=== PATIENT | male | born 1990 | race Caucasian/White ===

== ENCOUNTER 2021-09-08 08:14 | Observation (INO) | payer BC ==
[2021-09-08] MEDS ORDERED: NITROGLYCERIN SL TABS 0.4 MG TAB SUBLINGUAL STA (08:28)
[2021-09-08] MEDS ORDERED: NITROGLYCERIN SL TABS 0.4 MG TAB SUBLINGUAL PRN (08:32)
[2021-09-08] MEDS ORDERED: ONDANSETRON 4 MG/2 ML VIAL IVP STA ×2 (08:33→09:17)
[2021-09-08 08:48] LABS: Basophils % (A) 0 %; Eosinophils # (A) 0.2 k/uL (0-0.7); Eosinophils % (A) 2 %; HCT 47.8 % (39.0-53.0); HGB 17.1 gm/dL (13.0-17.5); Lymphocytes # (A) 1.4 k/uL (1.0-4.8); Lymphocytes % (A) 14 %; MCH 30.7 pg (25.0-35.0); MCHC 35.7 g/dL (31.0-37.0); MCV 85.9 fL (80.0-100.0); Mean Platelet Volume 6.9; Monocytes # (A) 0.6 k/uL (0-1.0); Monocytes % (A) 6 %; Neutrophils # (A) 7.6 k/uL (1.3-7.7); Neutrophils % (A) 77 %; Platelet Count 264 k/uL (150-450); RBC 5.56 m/uL (4.30-5.90); RDW 11.8 % (11.5-15.5); WBC 9.9 k/uL (3.8-10.6)
[2021-09-08 08:57] LABS: Partial Thromboplastin Time 24.7 sec (22.0-30.0); Prothrombin Time 10.9 sec (9.0-12.0)
[2021-09-08] MEDS ORDERED: ASPIRIN 81 MG PO STA (09:00)
[2021-09-08 09:11] LABS: ALT 33 U/L (4-49); AST 30 U/L (17-59); African American GFR (CKD) >90 (>60 ml/min/1.73 sqM); Albumin 4.9 g/dL (3.5-5.0); Alkaline Phosphatase 41 U/L (38-126); Anion Gap 9 mmol/L; Blood Urea Nitrogen 22 mg/dL (9-20); Calcium 10.3 mg/dL (8.4-10.2); Carbon Dioxide 26 mmol/L (22-30); Chloride 104 mmol/L (98-107); Glucose 110 mg/dL (74-99); Non-African American GFR(CKD) >90 (>60 ml/min/1.73 sqM); Potassium 4.3 mmol/L (3.5-5.1); Sodium 139 mmol/L (137-145); Total Bilirubin 0.9 mg/dL (0.2-1.3); Total Protein 8.1 g/dL (6.3-8.2)
--- NOTE | 2021-09-08 09:13 | ED ---
Chest Pain HPI - General Chief Complaint: Chest Pain Stated Complaint: Chest pain, SOB Time Seen by Provider: 09/08/21 08:19 Source: patient Mode of arrival: wheelchair Limitations: no limitations - History of Present Illness Initial Comments: Patient is a 31-year-old male with a past medical history of GERD who presents to the emergency department with a chief complaint of chest pain. This never happened before. Patient reports the chest pain started around 10 PM last night. Patient describes the pain as pressure/tightness ib center of his chest, 1/10 in severity with radiation to the left arm causing left arm numbness. He reports that pain was worse with movement and that he was able to comfortably rest in bed if he didn't move. Patient states he did fall asleep for 1 hour, but then woke up at midnight and could not sleep at all through the night for an unknown reason as pain was tolerable. Patient woke up this morning with increased chest pain. He was taking a shower and went to bend down to wash his body when he felt increased left sided pressure/tightness, 7/10 in severity. Patient reports radiation down the left arm and shortness of breath. He denies fever, chills, abdominal pain, nausea, and vomiting. Patient denies alcohol and drug use. Patient states that his mother had a heart attack around the age of 40 and another one 1-2 years later. - Related Data Home Medications Medication Instructions Recorded Confirmed Ascorbic Acid [Vitamin C] 1,000 mg PO DAILY 09/08/21 09/08/21 Cholecalciferol [Vitamin D3 (25 50 mcg PO DAILY 09/08/21 09/08/21 Mcg = 1000 Iu)] Omeprazole Magnesium [PriLOSEC OTC] 20 mg PO DAILY 09/08/21 09/08/21 Zinc 50 mg PO DAILY 09/08/21 09/08/21 Allergies Allergy/AdvReac Type Severity Reaction Status Date / Time codeine AdvReac Nausea & Verified 09/08/21 08:18 Vomiting Review of Systems ROS Statement: Those systems with pertinent positive or pertinent negative responses have been documented in the HPI. ROS Other: All systems not noted in ROS Statement are negative. EKG Findings - EKG Comments: EKG Findings:: EKG taken at 8:26. Normal sinus rhythm with sinus arrhythmia, moderate voltage criteria for LVH, maybe normal variant. Ventricular rate 94. MD interval 188. QRS duration 92. EKG taken at 8:35. Sinus bradycardia with premature supraventricular complexes and premature ventricular complexes or fusion complexes, Vnprg-Mprojhydd-Iebjx. Ventricular rate 48. MD interval 92. QRS duration 180. QT/QTc 460/410. EKG taken at 8:46. Normal sinus rhythm, voltage criteria for left ventricular hypertrophy, early repolarization. Ventricular rate 84. MD interval 202. QRS duration 94. QT/QTC 368/434. QT/QTc 330/412. EKG taken at 8:58. Normal sinus rhythm, ventricular preexcitation, Parkinson White pattern type a. Ventricular rate 81. MD interval 134. QRS duration 158. QT/QTc 404/469 Past Medical History Past Medical History: GERD/Reflux History of Any Multi-Drug Resistant Organisms: None Reported Past Surgical History: No Surgical Hx Reported Past Psychological History: No Psychological Hx Reported Smoking Status: Never smoker Past Alcohol Use History: Occasional Past Drug Use History: None Reported General Exam Limitations: no limitations General appearance: alert, in no apparent distress Head exam: Present: atraumatic, normocephalic, normal inspection Eye exam: Present: normal appearance, PERRL, EOMI. Absent: scleral icterus, conjunctival injection, periorbital swelling Neck exam: Present: normal inspection. Absent: tenderness, meningismus, lymphadenopathy Respiratory exam: Present: normal lung sounds bilaterally. Absent: respiratory distress, wheezes, rales, rhonchi, stridor Cardiovascular Exam: Present: regular rate (chest pain reproducible with palpation ), normal rhythm, normal heart sounds. Absent: systolic murmur, diastolic murmur, rubs, gallop, clicks GI/Abdominal exam: Present: soft, normal bowel sounds. Absent: distended, tenderness, guarding, rebound, rigid Neurological exam: Present: alert, oriented X3, CN II-XII intact Psychiatric exam: Present: normal affect, normal mood Skin exam: Present: warm, dry, intact, normal color. Absent: rash Course Vital Signs 09/08/21 09/08/21 09/08/21 08:15 08:28 08:50 Temperature 97.8 F Pulse Rate 102 H 125 H 85 Respiratory 18 18 Rate Blood Pressure 152/102 156/98 122/92 O2 Sat by Pulse 100 100 Oximetry 09/08/21 09/08/21 09:08 09:11 Temperature Pulse Rate 46 L 93 Respiratory 18 Rate Blood Pressure 88/46 132/84 O2 Sat by Pulse 100 Oximetry Chest Pain MDM - MDM This is a 31-year-old male with a past medical history of GERD who presents to the emergency department with left-sided chest pain. Initially, EKG revealed normal sinus rhythm with sinus arrhythmia. Patient did experience a vasovagal presyncopal episode during IV line insertion. At this time, repeat EKG revealed sinus bradycardia with premature supraventricular complexes and premature ventricular complexes or fusion complexes, resembling Guhfq-Jvthunlgf-Peipp. Cardiology was consultation and evaluated the patient. Patient's third EKG revealed normal sinus rhythm with voltage criteria for left ventricular hypertrophy, early repolarization. His fourth EKG revealed normal sinus rhythm, ventricular preexcitation, Pekfu-Usbceojlv-Fzwxy pattern type a.CBC and CMP are unremarkable. Troponin is negative 1. Chest x-ray reveals no acute pulmonary process. Echo performed. Upon reevaluation, patient is resting in bed. He states that he is feeling more relaxed but still has consistent chest pain. Toradol ordered. ESR/CRP, abdominal ultrasound ordered. Discussed results with Dr. Dhaliwal. Patient will be admitted to him with cardiology consult for potential ablation. Disposition Clinical Impression: Chest pain Disposition: ADMITTED IP TO THIS HOSP Condition: Fair Referrals: None,Stated [Primary Care Provider] - 1-2 days Time of Disposition: 10:20
[2021-09-08] MEDS ORDERED: MORPHINE SULFATE 4 MG/ML SYRINGE IVP STA (09:17)
--- NOTE | 2021-09-08 09:35 | XR ---
EXAMINATION TYPE: XR chest 1V DATE OF EXAM: 09/08/2021 COMPARISON: None INDICATION: Chest pain, short of breath TECHNIQUE: Single frontal view of the chest is obtained. FINDINGS: The heart size is normal. The pulmonary vasculature is normal. The lungs are clear. IMPRESSION: 1. No acute pulmonary process.
[2021-09-08] MEDS ORDERED: ONDANSETRON 4 MG/2 ML VIAL IVP PRN (10:06)
[2021-09-08] MEDS ORDERED: NALOXONE 0.4 MG/ML 1 ML VIAL IV PRN ×2 (10:06→10:27)
[2021-09-08] MEDS ORDERED: KETOROLAC 15 MG/ML 1 ML VIAL IVP STA (10:07)
[2021-09-08] MEDS ORDERED: KETOROLAC 30 MG/ML 1 ML VIAL IVP PRN (10:29)
--- NOTE | 2021-09-08 10:33 | P.HPIM ---
History of Present Illness H&P Date: 09/08/21 31-year-old male with no significant past medical history admitted to the hospital with chest pain shortness of breath that happens last night continued to get worse the patient came to the ER did have episodes of bradycardia and what was thought andressa powers synome patient also did have an episode of bradycardia and slight hypotension after that Patient has been evaluated in the ER by cardiology stat echocardiogram was done Review of systems and systems has been reviewed all negative and positive findings as per history of present illness Constitutional: No acute distress, conversant, pleasant Eyes: Anicteric sclerae, moist conjunctiva, no lid-lag PERRLA ENMT: NC/AT Oropharynx clear, no erythema, exudates Neck: Supple, FROM, no masses, or JVD No carotid bruits No thyromegaly Lungs: Clear to auscultation Clear to percussion Normal respiratory effort, no accessory muscle use Cardiovascular: Heart regular in rate and rhythm, No murmurs, gallops, or rubs No peripheral edema Abdominal: Soft Nontender, no guarding, rebound or rigidity Abdomen moving with respiration Normoactive bowel sounds No hepatomegaly, No splenomegaly No palpable mass No abdominal wall hernia noted Skin: Normal temperature, tone, texture, turgor No induration No subcutaneous nodules No rash, lesions No ulcers Extremities: No digital cyanosis No clubbing Pedal pulses intact and symmetrical Radial pulses intact and symmetrical Normal gait and station No calf tenderness Psychiatric:Alert and oriented to person, place and time Appropriate affect Intact judgement Neuro: Muscles Strength 5/5 in all 4 extremities Sensation to light touch grossly present throughout Cranial nerves II-XII grossly intact No focal sensory deficits Chest pain cardiology following Suspected pericarditis patient will be started on IV steroids and Toradol We'll check computed tomography scan of the lungs to rule out PE Question about Parkinson White syndrome cardiology following Past Medical History Past Medical History: GERD/Reflux History of Any Multi-Drug Resistant Organisms: None Reported Past Surgical History: No Surgical Hx Reported Past Psychological History: No Psychological Hx Reported Smoking Status: Never smoker Past Alcohol Use History: Occasional Past Drug Use History: None Reported Medications and Allergies Home Medications Medication Instructions Recorded Confirmed Type Ascorbic Acid [Vitamin C] 1,000 mg PO DAILY 09/08/21 09/08/21 History Cholecalciferol [Vitamin D3 (25 50 mcg PO DAILY 09/08/21 09/08/21 History Mcg = 1000 Iu)] Omeprazole Magnesium [PriLOSEC OTC] 20 mg PO DAILY 09/08/21 09/08/21 History Zinc 50 mg PO DAILY 09/08/21 09/08/21 History Allergies Allergy/AdvReac Type Severity Reaction Status Date / Time codeine AdvReac Nausea & Verified 09/08/21 08:18 Vomiting Physical Exam Vitals: Vital Signs Temp Pulse Resp BP Pulse Ox 09/08/21 09:11 93 18 132/84 100 09/08/21 09:08 46 L 88/46 09/08/21 08:50 85 122/92 09/08/21 08:28 125 H 18 156/98 100 09/08/21 08:15 97.8 F 102 H 18 152/102 100 Intake and Output 09/07/21 09/08/21 09/08/21 22:59 06:59 14:59 Other: Weight 81.647 kg Results CBC & Chem 7: 09/08/21 08:40 09/08/21 08:40 Labs: Abnormal Lab Results - Last 24 Hours (Table) 09/08/21 Range/Units 08:40 BUN 22 H (9-20) mg/dL Glucose 110 H (74-99) mg/dL Calcium 10.3 H (8.4-10.2) mg/dL
--- NOTE | 2021-09-08 11:26 | CT ---
EXAMINATION TYPE: CT abdomen w con DATE OF EXAM: 09/08/2021 COMPARISON: Ultrasound abdomen 09/08/2021 HISTORY: Chest pain with SOB CT DLP: 936.1 mGycm Automated exposure control for dose reduction was used. TECHNIQUE: Helical acquisition of images was performed from the lung bases through the top of iliac crest to include entire abdomen. CONTRAST: Performed without Oral Contrast and with IV Contrast, patient injected with 100 ml mL of Isovue 370. FINDINGS: LUNG BASES: No significant abnormality is appreciated. LIVER/GB: Gallbladder is not seen, mild intrahepatic biliary ductal dilatation likely due to postchol ecystectomy change. PANCREAS: No significant abnormality is seen. SPLEEN: Borderline enlarged ADRENALS: No significant abnormality is seen. KIDNEYS: No significant abnormality is seen. BOWEL: No significant abnormality is seen. LYMPH NODES: No significant abnormality is appreciated. OSSEOUS STRUCTURES: No significant abnormality is seen. FREE AIR: No Free Air visible ASCITES: None visible. RETROPERITONEAL ADENOPATHY: No Retroperitoneal Adenopathy visible. OTHER: IMPRESSION: POSTOP CHANGE, STATUS POST CHOLECYSTECTOMY. SPLENOMEGALY.
--- NOTE | 2021-09-08 11:28 | US ---
EXAMINATION TYPE: US abdomen complete DATE OF EXAM: 09/08/2021 COMPARISON: NONE CLINICAL HISTORY: Pain. EXAM MEASUREMENTS: Liver Length: 16.3 cm Gallbladder Wall: 0.4 cm CBD: 0.4 cm Spleen: 11.4 cm Right Kidney: 9.5 x 4.1 x 5.5 cm Left Kidney: 9.5 x 5.3 x 4.9 cm Pancreas: Tail obscured by overlying bowel gas Liver: wnl as seen Gallbladder: AYDIN sign, limited views due to overlying bowel gas, ?wall thickening Evidence for sonographic Vasquez's sign: no CBD: wnl Spleen: wnl,limited views due to overlying bowel gas Right Kidney: wnl, as seen, limited views due to overlying bowel gas and tight intercostal spaces Left Kidney: wnl, as seen, limited views due to overlying bowel gas and tight intercostal spaces Upper IVC: wnl Abd Aorta: lwnl, as seen, limited views due to overlying bowel gas IMPRESSION: 1. Wall echo shadow sign is present, gallbladder wall may be thickened 0.4 cm. clinical correlation r ecommended for acute cholecystitis. 2. Examination is very limited due to bowel gas
--- NOTE | 2021-09-08 11:29 | CT ---
EXAMINATION TYPE: CT chest angio for PE DATE OF EXAM: 09/08/2021 COMPARISON: Radiograph 09/08/2021 HISTORY: 31-year-old male Chest pain with SOB TECHNIQUE: Contiguous axial scanning of the chest performed with IV Contrast, patient injected with 1 00 ml mL of Isovue 370. Coronal/sagittal MIP reconstructions performed. CT DLP: 936.1 mGycm Automated exposure control for dose reduction was used. FINDINGS: Heart normal size without pericardial effusion. No flattening of the interventricular septum reflux o f contrast into the hepatic veins. Ectatic aortic root at 3.8 cm. This may be artifactual due to cardiac motion. Conventional arterial s upply to anatomy. Satisfactory opacification the pulmonary canal system. Mild breathing motion artifacts but without ev idence for pulmonary embolus. No thoracic lymphadenopathy by CT size criteria. Mild bronchial wall thickening. Some mild dependent atelectasis in the posterior lower lobes. No cons olidation or pleural effusion. Visualized upper abdomen shows no gross abnormality. Bones: No osseous destructive process. IMPRESSION: NO EVIDENCE FOR PULMONARY EMBOLUS. VERY MILD BRONCHIAL WALL THICKENING MAY REFLECT BRONCHITIS OR REHABILITATOR SANTIAGO ASTHMA. NO FOCAL INFILTRATE.
--- NOTE | 2021-09-08 11:36 | ECHOF ---
Referral Reason:Chest Pain MEASUREMENTS -------- HEIGHT: 185.4 cm WEIGHT: 81.6 kg BP: 132/84 IVSd: 1.0 cm (0.6 - 1.1) LVIDd: 4.6 cm (3.9 - 5.3) LVPWd: 1.0 cm (0.6 - 1.1) EDV(Teich): 100 ml IVSs: 1.5 cm LVIDs: 3.3 cm LVPWs: 1.8 cm %IVS Thck: 51 % ESV(Teich): 45 ml EF(Teich): 55 % %FS: 28 % SV(Teich): 55 ml LA Diam: 2.8 cm (2.7 - 3.8) RVIDd: 2.2 cm (< 3.3) LALs A4C: 3.7 cm LAAs A4C: 12.7 cm LAESV A-L A4C: 37 ml LAESV MOD A4C: 31 ml LALs A2C: 4.7 cm LAAs A2C: 12.5 cm LAESV A-L A2C: 28 ml LAESV MOD A2C: 25 ml LAESV(A-L): 36 ml Ao Diam: 3.4 cm (2.0 - 3.7) AV Cusp: 2.8 cm (1.5 - 2.6) EPSS: 1.0 cm MV E Raza: 0.81 m/s MV DecT: 265 ms MV Dec [place]: 3.0 m/s MV A Raza: 0.63 m/s MV E/A Ratio: 1.29 MV PHT: 77 ms AV Vmax: 1.28 m/s AV maxP.59 mmHg TR Vmax: 1.91 m/s TR maxP.65 mmHg MV EF SLOPE: 117.54 mm/s (70 - 150) MV EXCURSION: 16.27 mm (> 18.000) FINDINGS -------- Sinus rhythm. This was a technically adequate study. The left ventricular size is normal. Left ventricular wall thickness is normal. Overall left vent ricular systolic function is normal with, an EF between 60 - 65 %. The right ventricle is normal in size. The left atrium is normal in size. The right atrium is normal in size. Interatrial and interventricular septum intact. The aortic valve is trileaflet, and appears structurally normal. No aortic stenosis or regurgitation. There is trace to mild mitral regurgitation. The tricuspid valve appears structurally normal. Unable to estimate RVSP due to inadequate TR jet s pectral doppler profile. Trace/mild (physiologic) pulmonic regurgitation. The aortic root size is normal. The inferior vena cava is mildly dilated. There is no pericardial effusion. CONCLUSIONS -------- 1. The left ventricular size is normal. 2. Left ventricular wall thickness is normal. 3. Overall left ventricular systolic function is normal with, an EF between 60 - 65 %. 4. The aortic valve is trileaflet, and appears structurally normal. No aortic stenosis or regurgitati on. 5. There is trace to mild mitral regurgitation. 6. Trace/mild (physiologic) pulmonic regurgitation. 7. There is no pericardial effusion. WELL DRILL OPERATOR ROTARY DRILL: Mally De Jesus, MENDOZACS
[2021-09-08] MEDS: methylPREDNISolone SOD SUCCI 40 MG/ML 1 ML VIAL IV SCH ×3 (12:31→23:21)
[2021-09-08 19:09] LABS: Appearance,Urine Clear (Clear); Bilirubin,Urine Negative (Negative); Blood,Urine Negative (Negative); Color,Urine Light Yellow; Glucose,Urine (UA) Trace (Negative); Ketones,Urine Negative (Negative); Leukocyte Esterase,Urine Negative (Negative); Nitrite,Urine Negative (Negative); PH, Urine 6.5 (5.0-8.0); Protein,Urine Negative (Negative); Specific Gravity,Urine 1.024 (1.001-1.035); Urobilinogen,Urine <2.0 mg/dL (<2.0)
[2021-09-08 19:31] LABS: Amphetamine Screen,Urine Not Detected (NotDetected); Barbiturate Screen,Urine Not Detected (NotDetected); Benzodiazepines Screen,Urine Not Detected (NotDetected); Cocaine Screen,Urine Not Detected (NotDetected); Methadone Screen, Urine Not Detected (NotDetected); Opiate Screen,Urine Detected (NotDetected); Oxycodone Screen, Urine Not Detected (NotDetected); Phencyclidine Screen,Urine Not Detected (NotDetected); Tricyclic Antidepressant,Urine Not Detected (NotDetected); Urn Cannabinoid Scrn Not Detected (NotDetected)
[2021-09-08] MEDS: ACETAMINOPHEN TAB 325 MG TAB PO PRN (20:25)
[2021-09-09] MEDS: ACETAMINOPHEN TAB 325 MG TAB PO PRN (07:49)
[2021-09-09] MEDS: methylPREDNISolone SOD SUCCI 40 MG/ML 1 ML VIAL IV SCH ×3 (07:49→23:26)
--- NOTE | 2021-09-09 08:42 | P.PN ---
Subjective Progress Note Date: 09/09/21 Principal diagnosis: pericarditis The patient is a pleasant 31-year-old gentleman was admitted to the hospital with chest discomfort. The chest discomfort was pleuritic and consistent with pericarditis. The EKG showed finding consistent with pericarditis. Also the second EKG showed finding consistent with preexcitation. The patient was seen this morning. He is doing better in terms of chest discomfort. He reports no shortness of breath or dizziness or lightheadedness o r any presyncope or syncope. The echo showed normal left ventricular systolic function without any evidence of pericardial effusion. I'm going to start the patient on ibuprofen along with colchicine along with Protonix. I advised the patient to stay one more day since she continues to have a chest discomfort. The EKG this morning showed sinus rhythm with evidence of preexcitation. He is hemodynamically stable. Objective - Vital Signs Vital signs: Vital Signs Temp 97.9 F 09/09/21 07:00 Pulse 69 09/09/21 07:00 Resp 18 09/09/21 07:00 BP 134/84 09/09/21 07:00 Pulse Ox 99 09/09/21 07:00 Intake & Output 09/08/21 09/09/21 09/09/21 18:59 06:59 18:59 Intake Total 1000 Output Total 350 0 Balance 650 0 Weight 81.647 kg Intake: Oral 1000 Output: Urine 350 Emesis 0 Other: Voiding Method Toilet Toilet # Voids 1 1 - Constitutional General appearance: Present: no acute distress - Respiratory Respiratory: bilateral: CTA - Cardiovascular Rhythm: regular Heart sounds: normal: S1, S2 - Labs CBC & Chem 7: 09/08/21 08:40 09/08/21 08:40 Labs: Abnormal Lab Results - Last 24 Hours (Table) 09/08/21 09/08/21 09/08/21 Range/Units 08:40 18:53 18:54 BUN 22 H (9-20) mg/dL Glucose 110 H (74-99) mg/dL Calcium 10.3 H (8.4-10.2) mg/dL Urine Glucose (UA) Trace H (Negative) Urine Opiates Screen Detected H (NotDetected) Assessment and Plan Assessment: Assessment #1 chest discomfort consistent with acute pericarditis #2 evidence of preexcitation on the EKG Plan #1 start the patient on ibuprofen along with colchicine along with Protonix #2 the patient will benefit from an EP consult to assess the need for ablation for preexcitation #3 the echo was reviewed #4 monitor the patient for additional 24 hours
[2021-09-09] MEDS: COLCHICINE 0.6 MG EACH PO SCH ×2 (09:41→20:01)
[2021-09-09] MEDS: IBUPROFEN 200 MG TAB PO SCH ×3 (09:41→22:10)
--- NOTE | 2021-09-09 11:35 | P.PN ---
Subjective Progress Note Date: 09/09/21 31-year-old male with no significant past medical history admitted to the hospital with chest pain shortness of breath that happens last night continued to get worse the patient came to the ER did have episodes of bradycardia and what was thought andressa powers synome patient also did have an episode of bradycardia and slight hypotension after that Patient has been evaluated in the ER by cardiology stat echocardiogram was done Review of systems and systems has been reviewed all negative and positive findings as per history of present illness Constitutional: No acute distress, conversant, pleasant Eyes: Anicteric sclerae, moist conjunctiva, no lid-lag PERRLA ENMT: NC/AT Oropharynx clear, no erythema, exudates Neck: Supple, FROM, no masses, or JVD No carotid bruits No thyromegaly Lungs: Clear to auscultation Clear to percussion Normal respiratory effort, no accessory muscle use Cardiovascular: Heart regular in rate and rhythm, No murmurs, gallops, or rubs No peripheral edema Abdominal: Soft Nontender, no guarding, rebound or rigidity Abdomen moving with respiration Normoactive bowel sounds No hepatomegaly, No splenomegaly No palpable mass No abdominal wall hernia noted Skin: Normal temperature, tone, texture, turgor No induration No subcutaneous nodules No rash, lesions No ulcers Extremities: No digital cyanosis No clubbing Pedal pulses intact and symmetrical Radial pulses intact and symmetrical Normal gait and station No calf tenderness Psychiatric:Alert and oriented to person, place and time Appropriate affect Intact judgement Neuro: Muscles Strength 5/5 in all 4 extremities Sensation to light touch grossly present throughout Cranial nerves II-XII grossly intact No focal sensory deficits Chest pain cardiology following Suspected pericarditis patient will be started on IV steroids and Toradol We'll check computed tomography scan of the lungs to rule out PE Question about Parkinson White syndrome cardiology following Patient will be continue to observe overnight Management as per cardiology and EP Objective - Vital Signs Vital signs: Vital Signs Temp 97.9 F 09/09/21 07:00 Pulse 69 09/09/21 07:00 Resp 18 09/09/21 07:00 BP 134/84 09/09/21 07:00 Pulse Ox 99 09/09/21 07:00 Intake & Output 09/08/21 09/09/21 09/09/21 18:59 06:59 18:59 Intake Total 1000 Output Total 350 0 Balance 650 0 Weight 81.647 kg Intake: Oral 1000 Output: Urine 350 Emesis 0 Other: Voiding Method Toilet Toilet Toilet # Voids 1 1 - Labs CBC & Chem 7: 09/08/21 08:40 09/08/21 08:40 Labs: Abnormal Lab Results - Last 24 Hours (Table) 09/08/21 09/08/21 Range/Units 18:53 18:54 Urine Glucose (UA) Trace H (Negative) Urine Opiates Screen Detected H (NotDetected)
[2021-09-09 12:44] LABS: Basophils # (A) 0.01 X 10*3/uL (0.00-0.10); Basophils % (A) 0.1 %; Eosinophils # (A) 0 X 10*3/uL (0.04-0.35); Eosinophils % (A) 0 %; HGB 15.2 g/dL (13.0-17.0); Lymphocytes # (A) 1.35 X 10*3/uL (0.90-5.00); Lymphocytes % (A) 12.7 %; MCH 29.1 pg (27.0-32.0); MCHC 33.8 g/dL (32.0-37.0); Mean Platelet Volume 9.7 fL (9.5-12.2); Monocytes # (A) 0.53 X 10*3/uL (0.20-1.00); Neutrophils # (A) 8.75 X 10*3/uL (1.80-7.70); Neutrophils % (A) 81.9 %; Platelet Count 253 X 10*3/uL (140-440); RBC 5.23 X 10*6/uL (4.40-5.60); RDW 11.9 % (11.5-14.5); WBC 10.67 X 10*3/uL (4.50-10.00)
[2021-09-09 13:04] LABS: African American GFR (CKD) 143.7 (60.0-200.0); Albumin 4.5 g/dL (3.8-4.9); Albumin/Globulin Ratio 2.14 (1.60-3.17); Anion Gap 12.1 mmol/L (10.00-18.00); BUN/Creat Ratio 18.86 Ratio (12.00-20.00); Blood Urea Nitrogen 13.2 mg/dL (9.0-27.0); Calcium 10.1 mg/dL (8.7-10.3); Carbon Dioxide 24.9 mmol/L (20.0-27.5); Globulin 2.1 g/dL (1.6-3.3); Potassium 4.5 mmol/L (3.5-5.5); Total Bilirubin 0.4 mg/dL (0.30-1.20); Total Protein 6.6 g/dL (6.2-8.2)
[2021-09-09] MEDS: PANTOPRAZOLE 40 MG TABLET PO SCH (16:10)
[2021-09-09 19:53] VITALS: RESP 18
[2021-09-10] MEDS: IBUPROFEN 200 MG TAB PO SCH (07:39)
[2021-09-10] MEDS: PANTOPRAZOLE 40 MG TABLET PO SCH (07:39)
[2021-09-10] MEDS: COLCHICINE 0.6 MG EACH PO SCH (07:40)
[2021-09-10] MEDS: methylPREDNISolone SOD SUCCI 40 MG/ML 1 ML VIAL IV SCH (07:40)
[2021-09-10 08:35] VITALS: BP 128/71; PULSE 80; TEMP 97.4
--- NOTE | 2021-09-10 11:21 | P.PN ---
Subjective Progress Note Date: 09/10/21 Principal diagnosis: pericarditis The patient is a pleasant 31-year-old gentleman was admitted to the hospital with chest discomfort. The chest discomfort was pleuritic and consistent with pericarditis. The EKG showed finding consistent with pericarditis. Also the second EKG showed finding consistent with preexcitation. The patient was started on treatment for pericarditis with nonsteroid anti-inflammatory medications along with colchicine. He was seen today. He remains asymptomatic in terms of chest pain or chest discomfort. He reports no shortness of breath. No dizziness or lightheadedness. No feeling of heart racing or fluttering. No presyncope or syncope. He would like to go home. From a cardiac standpoint of view, the patient can be discharged home. I asked him to stay overnight to be seen by an carousel operator tomorrow but he would like to be seen as an outpatient. From the cardiac standpoint of view, the patient can be discharged home and I'll follow-up with him in the office as an outpatient Objective - Vital Signs Vital signs: Vital Signs Temp 97.4 F L 09/10/21 07:00 Pulse 80 09/10/21 07:00 Resp 18 09/10/21 07:00 BP 128/71 09/10/21 07:00 Pulse Ox 99 09/10/21 07:00 Intake & Output 09/09/21 09/10/21 09/10/21 18:59 06:59 18:59 Intake Total 120 Balance 120 Intake: Oral 120 Other: Voiding Method Toilet Toilet Toilet # Voids 2 # Bowel Movements 3 - Constitutional General appearance: Present: no acute distress - Respiratory Respiratory: bilateral: CTA - Cardiovascular Rhythm: regular Heart sounds: normal: S1, S2 - Labs CBC & Chem 7: 09/09/21 08:06 09/09/21 08:06 Labs: Abnormal Lab Results - Last 24 Hours (Table) 09/09/21 Range/Units 08:06 WBC 10.67 H (4.50-10.00) X 10*3/uL Neutrophils # 8.75 H (1.80-7.70) X 10*3/uL Eosinophils # 0 L (0.04-0.35) X 10*3/uL Assessment and Plan Assessment: Assessment #1 chest discomfort consistent with acute pericarditis #2 evidence of preexcitation on the EKG Plan #1 continue the current medical regimen including nonsteroid anti-inflammatory along with colchicine #2 follow-up with the patient as an outpatient
--- NOTE | 2021-09-10 11:26 | P.DS ---
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 Patient also was found to have suspected pericarditis Treated with IV steroids and Advil significantly improved the condition of the patient is stable the patient doesn't have any significant chest pain or shortness of breath today Constitutional: No acute distress, conversant, pleasant Eyes: Anicteric sclerae, moist conjunctiva, no lid-lag PERRLA ENMT: NC/AT Oropharynx clear, no erythema, exudates Neck: Supple, FROM, no masses, or JVD No carotid bruits No thyromegaly Lungs: Clear to auscultation Clear to percussion Normal respiratory effort, no accessory muscle use Cardiovascular: Heart regular in rate and rhythm, No murmurs, gallops, or rubs No peripheral edema Abdominal: Soft Nontender, no guarding, rebound or rigidity Abdomen moving with respiration Normoactive bowel sounds No hepatomegaly, No splenomegaly No palpable mass No abdominal wall hernia noted Skin: Normal temperature, tone, texture, turgor No induration No subcutaneous nodules No rash, lesions No ulcers Extremities: No digital cyanosis No clubbing Pedal pulses intact and symmetrical Radial pulses intact and symmetrical Normal gait and station No calf tenderness Psychiatric:Alert and oriented to person, place and time Appropriate affect Intact judgement Neuro: Muscles Strength 5/5 in all 4 extremities Sensation to light touch grossly present throughout Cranial nerves II-XII grossly intact No focal sensory deficits Discharge plan Suspected pericarditis continue steroids and ibuprofen patient to follow-up with cardiology as an outpatient Question about while Parkinson's syndrome patient to follow-up with EP as an outpatient Patient Condition at Discharge: Fair Plan - Discharge Summary Discharge Rx Participant: No New Discharge Prescriptions: New Ibuprofen [Advil] 200 mg PO TID 10 Days #30 tab predniSONE 50 mg PO DAILY 7 Days #7 tablet Continue Zinc 50 mg PO DAILY Cholecalciferol [Vitamin D3 (25 Mcg = 1000 Iu)] 50 mcg PO DAILY Ascorbic Acid [Vitamin C] 1,000 mg PO DAILY Omeprazole Magnesium [PriLOSEC OTC] 20 mg PO DAILY Discharge Medication List Ascorbic Acid [Vitamin C] 1,000 mg PO DAILY 09/08/21 [History] Cholecalciferol [Vitamin D3 (25 Mcg = 1000 Iu)] 50 mcg PO DAILY 09/08/21 [History] Omeprazole Magnesium [PriLOSEC OTC] 20 mg PO DAILY 09/08/21 [History] Zinc 50 mg PO DAILY 09/08/21 [History] Ibuprofen [Advil] 200 mg PO TID 10 Days #30 tab 09/10/21 [Rx] predniSONE 50 mg PO DAILY 7 Days #7 tablet 09/10/21 [Rx] Follow up Appointment(s)/Referral(s): None,Stated [Primary Care Provider] - 1-2 days Discharge Disposition: HOME SELF-CARE
[2021-09-10 11:30] LABS: African American GFR (CKD) 143.7 (60.0-200.0); Albumin 4.4 g/dL (3.8-4.9); Albumin/Globulin Ratio 2.1 (1.60-3.17); Anion Gap 11.8 mmol/L (10.00-18.00); Blood Urea Nitrogen 16.8 mg/dL (9.0-27.0); Calcium 9.9 mg/dL (8.7-10.3); Carbon Dioxide 26.2 mmol/L (20.0-27.5); Globulin 2.1 g/dL (1.6-3.3); Potassium 4.8 mmol/L (3.5-5.5); Total Bilirubin 0.3 mg/dL (0.30-1.20); Total Protein 6.5 g/dL (6.2-8.2)
[2021-09-10 11:44] LABS: Basophils # (A) 0 X 10*3/uL (0.00-0.10); Basophils % (A) 0 %; Eosinophils # (A) 0 X 10*3/uL (0.04-0.35); Eosinophils % (A) 0 %; HCT 45.5 % (39.6-50.0); HGB 15.4 g/dL (13.0-17.0); Lymphocytes # (A) 1.13 X 10*3/uL (0.90-5.00); Lymphocytes % (A) 10.9 %; MCH 29.3 pg (27.0-32.0); MCHC 33.8 g/dL (32.0-37.0); MCV 86.7 fL (80.0-97.0); Mean Platelet Volume 9.9 fL (9.5-12.2); Monocytes # (A) 0.61 X 10*3/uL (0.20-1.00); Monocytes % (A) 5.9 %; Neutrophils # (A) 8.61 X 10*3/uL (1.80-7.70); Platelet Count 270 X 10*3/uL (140-440); RBC 5.25 X 10*6/uL (4.40-5.60); RDW 11.9 % (11.5-14.5); WBC 10.37 X 10*3/uL (4.50-10.00)
== END 2021-09-10 12:10 | disposition home or self-care (01) ==
LOC: EC 08:14 → 6NMEDSUR 09:56
PROVIDERS: ADMIT Internal Medicine; ATTEND Internal Medicine
DX: R07.89 Other chest pain (principal); R20.0 Anesthesia of skin; R07.81 Pleurodynia; R06.02 Shortness of breath; R55 Syncope and collapse; I95.9 Hypotension, unspecified; R00.1 Bradycardia, unspecified; I34.0 Nonrheumatic mitral (valve) insufficiency; K21.9 Gastro-esophageal reflux disease without esophagitis; Z20.822 Contact with and (suspected) exposure to COVID-19; Z71.9 Counseling, unspecified; Z79.899 Other long term (current) drug therapy; Z88.5 Allergy status to narcotic agent; Z82.49 Family history of ischemic heart disease and other diseases of the circulatory system
CPT/HCPCS: 96376 ×3; 96375 ×2; 96374; 99285; 36415; 93005; 93306; 80053 ×3; 85652; 83735; 84484; 85025 ×3; 85610; 85730; 86140; 81003; 80306; 87635; 71045; 76700; 74160; 71275; G0378 ×3; J2270; J2920 ×3; J2405; J1885 ×2; Q9967

== ENCOUNTER 2021-12-28 12:52 | Day surgery (SDC) | payer BC ==
[2021-12-27 08:13] VITALS: BMI 24.4
[2021-12-28] MEDS ORDERED: SODIUM CHLORIDE 0.9% 1,000 ML IV ONE (13:38)
[2021-12-28 13:46] LABS: Basophils % (A) 0 %; Eosinophils # (A) 0.1 k/uL (0-0.7); Eosinophils % (A) 3 %; HCT 47.7 % (39.0-53.0); HGB 16.4 gm/dL (13.0-17.5); Lymphocytes # (A) 1.9 k/uL (1.0-4.8); Lymphocytes % (A) 41 %; MCH 29.6 pg (25.0-35.0); MCHC 34.4 g/dL (31.0-37.0); MCV 85.9 fL (80.0-100.0); Mean Platelet Volume 7.1; Monocytes # (A) 0.4 k/uL (0-1.0); Monocytes % (A) 8 %; Neutrophils # (A) 2.1 k/uL (1.3-7.7); Neutrophils % (A) 46 %; Platelet Count 258 k/uL (150-450); RBC 5.55 m/uL (4.30-5.90); RDW 11.7 % (11.5-15.5); WBC 4.6 k/uL (3.8-10.6)
[2021-12-28 13:48] LABS: African American GFR (CKD) >90 (>60 ml/min/1.73 sqM); Anion Gap 7 mmol/L; Blood Urea Nitrogen 20 mg/dL (9-20); Calcium 9.5 mg/dL (8.4-10.2); Carbon Dioxide 31 mmol/L (22-30); Chloride 102 mmol/L (98-107); Glucose 88 mg/dL (74-99); Non-African American GFR(CKD) >90 (>60 ml/min/1.73 sqM); Potassium 4.2 mmol/L (3.5-5.1); Sodium 140 mmol/L (137-145)
[2021-12-28] MEDS ORDERED: diphenhydrAMINE 50 MG/ML 1 ML VIAL ONE (15:26)
[2021-12-28] MEDS ORDERED: DEXAMETHASONE SOD PHOSPHATE 4 MG/ML 1 ML VIAL ONE (15:26)
[2021-12-28] MEDS ORDERED: MIDAZOLAM 2 MG/2 ML VIAL ONE (15:26)
[2021-12-28] MEDS ORDERED: ISOPROTERENOL 250 MCG/1.25 ML SYR IV ONE (15:26)
[2021-12-28] MEDS ORDERED: ONDANSETRON 4 MG/2 ML VIAL ONE ×2 (15:26→16:23)
[2021-12-28] MEDS ORDERED: fentaNYL (PF) 50 MCG/ML 2 ML AMP ONE (15:26)
[2021-12-28] MEDS ORDERED: LIDOCAINE 1% INJ 10MG/ML (30 ML VIAL-PF) SQ ONE (16:02)
--- NOTE | 2021-12-28 17:28 | P.EPPROC ---
- EP Procedure Note Electrophysiology Procedure Note: Diagnosis Recurrent palpitations Antegrade accessory pathway left posterior evident on twelve-lead EKG Final diagnosis Antegrade accessory pathway only left posterior Does not support reentry Long VA conduction time that does not support AV rosa reentry either Narrow QRS during induced atrial fibrillation Prolonged AH interval baseline in a very mildly sedated state Normal HV interval Accessory pathway ablation NOT indicated Details Patient was brought to the EP lab in a fasting state. Written informed consent was obtained prior to the procedure. Venous sheaths were placed in the right and left femoral veins Catheters were placed in the high right atrium, His bundle, right ventricle and coronary sinus Baseline measurements: Sinus cycle length 05/01/1990 milliseconds, ID interval 191, QRS 108 and QT interval 361 AH interval 136, HV interval 48 ms Sinus node recovery time was difficult to assess on account of PACs AV node Wenckebach block for 90 ms in the baseline state VA Wenckebach block greater than 700 ms, in the baseline state Isuprel started. Patient became nauseous on Isuprel but ultimately we were able to do Isuprel up to 10 mics, slowly Antegrade accessory pathway block between 550 and 590 ms depending upon pacing from high right atrium of the coronary sinus Retrograde accessory pathway block at 510 ms Retrograde AV node block at 510 ms Echo beats comprising of antegrade conduction down the AV node and up the accessory pathway were noted frequently However this pathway could not support sustained reentry The ventricular end of the pathway appeared to be in the mid coronary sinus poles and the atrial and appeared to be lateral to this location On high-dose Isuprel atrial fibrillation was induced QRS remained narrow rate remained controlled All catheters removed. Vascade closure used
--- NOTE | 2021-12-28 17:31 | P.PRLE ---
RE: Osorio Oliver Dear Godfrey Atkins underwent a diagnostic EP study which revealed a left posterior accessory pathway that could not support reentry Nor could it support one-to-one conduction during atrial fibrillation He will continue to see you and Dr. Morris as before Thank you for entrusting me with the care of the patient Warm regards Sincerely Miguel A Howard
[2021-12-28 18:27] VITALS: RESP 18
[2021-12-28] MEDS: LACTATED RINGERS 1,000 ML IV SCH (18:27)
[2021-12-28] MEDS: SODIUM CHLORIDE 0.9% 1,000 ML IV SCH (18:27)
[2021-12-29] MEDS: LACTATED RINGERS 1,000 ML IV SCH (04:29)
[2021-12-29] MEDS: SODIUM CHLORIDE 0.9% 1,000 ML IV SCH (04:30)
[2021-12-29 07:48] VITALS: BP 126/70; PULSE 64; TEMP 98
--- NOTE | 2021-12-29 09:12 | DS ---
DISCHARGE SUMMARY Osorio Oliver is a patient of Dr. 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 He underwent a diagnostic EP study yesterday. He is doing well today. No chest discomfort, minimal groin discomfort, no hematoma, no swelling. Blood pressure is in the normal range. IMPRESSION: 1. Left posterior accessory pathway. 2. No evidence for orthodromic or antidromic reentry. 3. Narrow QRS during induced atrial fibrillation. 4. This pathway has slow conducting properties and cannot sustain reentry or conduction during atrial fibrillation or rapid pacing. 5. Therefore ablation is not indicated for this pathway. PLAN: The patient will be discharged home today and will follow up with Dr. Arndt in a week. MMODL / IJN: [id number] /
== END 2021-12-29 10:08 | disposition home or self-care (01) ==
LOC: CATHEP 12:52 → 6NMEDSUR 17:18 → CATHEP 12-29 10:08
PROVIDERS: ATTEND Internal Medicine Clinical Cardiac Electrophysiology
DX: I48.91 Unspecified atrial fibrillation (principal); Z20.822 Contact with and (suspected) exposure to COVID-19
CPT/HCPCS: 93623; 93620; 80048; 85025; 87635; C1894; C1769 ×2; C1760; C1730 ×2; J2250; J1200; J1100; J2405; J2001; J3010

== ENCOUNTER 2022-01-11 16:32 | Observation (INO) | payer BC ==
[2022-01-11] MEDS ORDERED: HYDROmorphone 0.5 MG/0.5 ML SYRINGE IVP STA (18:18)
--- NOTE | 2022-01-11 18:30 | ED ---
General Adult HPI - General Chief complaint: Chest Pain Stated complaint: Chest pain-Sent by Dr. Arndt Time Seen by Provider: 01/11/22 16:45 Source: patient, RN notes reviewed, old records reviewed Mode of arrival: ambulatory Limitations: no limitations - History of Present Illness Initial comments: This is a 31-year-old male who presents emergency Department with chest pain. Patient was recently in the hospital for pericarditis and was sent home on c olchicine. Patient states the pain started getting better but more recently got worse so he went to see Dr. staff Dr. Arndt increased is cold to seen but it has not helped so Dr. Arndt recommended he come to the hospital to be admitted. Patient states lying flat makes it worse sitting way forward makes it worse sitting straight up in the past position with the least amount of pain per patient states the pain is a sharp pain. Patient states it hurts take a deep breath but he doesn't feel short of breath. Patient denies any recent fever chills or cough per patient denies any abdominal pain patient denies nausea vomiting diarrhea. Patient denies any lightheadedness or dizziness. - Related Data Home Medications Medication Instructions Recorded Confirmed Ascorbic Acid [Vitamin C] 1,000 mg PO DAILY 09/08/21 12/28/21 Omeprazole Magnesium [PriLOSEC OTC] 20 mg PO DAILY 09/08/21 12/28/21 Cholecalciferol (Vitamin D3) 2,500 units PO DAILY 12/27/21 12/28/21 [Vitamin D3 (125 MCG = 5,000 IU)] Previous Rx's Medication Instructions Recorded Colchicine [Colcrys] 0.6 mg PO BID 30 Days #60 tablet 09/10/21 Allergies Allergy/AdvReac Type Severity Reaction Status Date / Time codeine AdvReac Nausea & Verified 12/27/21 08:05 Vomiting Review of Systems ROS Statement: Those systems with pertinent positive or pertinent negative responses have been documented in the HPI. ROS Other: All systems not noted in ROS Statement are negative. Past Medical History Past Medical History: GERD/Reflux Additional Past Medical History / Comment(s): Bronchitis, see Dr Howard H&P, pericarditis WPW History of Any Multi-Drug Resistant Organisms: None Reported Past Surgical History: No Surgical Hx Reported Additional Past Surgical History / Comment(s): mole removed, oral surgery Past Anesthesia/Blood Transfusion Reactions: Motion Sickness, Postoperative Na usea & Vomiting (PONV) Additional Past Anesthesia/Blood Transfusion Reaction / Comment(s): . Past Psychological History: No Psychological Hx Reported Smoking Status: Former smoker Past Alcohol Use History: Occasional Past Drug Use History: Marijuana - Past Family History Mother Family Medical History: Myocardial Infarction (MS) Additional Family Medical History / Comment(s): Mother has had 2-3 MIs and the first MS was either at age 41 or 42. General Exam - General Exam Comments Initial Comments: GENERAL: Patient is well-developed and well-nourished. Patient is nontoxic and well- hydrated and is in mild distress. ENT: Neck is soft and supple. No significant lymphadenopathy is noted. Oropharynx is clear. Moist mucous membranes. Neck has full range of motion without eliciting any pain. EYES: The sclera were anicteric and conjunctiva were pink and moist. Extraocular movements were intact and pupils were equal round and reactive to light. Eyelids were unremarkable. PULMONARY: Unlabored respirations. Good breath sounds bilaterally. No audible rales rhonchi or wheezing was noted. CARDIOVASCULAR: There is a regular rate and rhythm without any murmurs gallops or rubs. ABDOMEN: Soft and nontender with normal bowel sounds. SKIN: Skin is clear with no lesions or rashes and otherwise unremarkable. NEUROLOGIC: Patient is alert and oriented x3. Cranial nerves II through XII are grossly intact. Motor and sensory are also intact. Normal speech, volume and content. Symmetrical smile. MUSCULOSKELETAL: Normal extremities with adequate strength and full range of motion. LYMPHATICS: No significant lymphadenopathy is noted PSYCHIATRIC: Normal psychiatric evaluation. 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 Patient has some peaked T waves in the precordial leads as well as significant ST segment elevation diffusely. Consistent with pericarditis. I spoke with Dr. Yris Arndt wanted the patient admitted. Chest x-ray shows no acute abnormality. I spoke with sounds physician's he agreed to admit the patient admitted the patient I wrote admitting orders. - Lab Data Result diagrams: 01/11/22 18:22 01/11/22 18:22 Lab Results 01/11/22 01/11/22 01/11/22 Range/Units 18:22 18:22 18:22 WBC 9.6 (3.8-10.6) k/uL RBC 5.62 (4.30-5.90) m/uL Hgb 16.9 (13.0-17.5) gm/dL Hct 48.1 (39.0-53.0) % MCV 85.6 (80.0-100.0) fL MCH 30.0 (25.0-35.0) pg MCHC 35.1 (31.0-37.0) g/dL RDW 12.3 (11.5-15.5) % Plt Count 269 (150-450) k/uL MPV 7.0 Neutrophils % 77 % Lymphocytes % 14 % Monocytes % 7 % Eosinophils % 1 % Basophils % 0 % Neutrophils # 7.3 (1.3-7.7) k/uL Lymphocytes # 1.4 (1.0-4.8) k/uL Monocytes # 0.6 (0-1.0) k/uL Eosinophils # 0.1 (0-0.7) k/uL Basophils # 0.0 (0-0.2) k/uL PT 10.9 (9.0-12.0) sec INR 1.0 (<1.2) APTT 25.6 (22.0-30.0) sec Sodium 138 (137-145) mmol/L Potassium 4.0 (3.5-5.1) mmol/L Chloride 102 (98-107) mmol/L Carbon Dioxide 27 (22-30) mmol/L Anion Gap 9 mmol/L BUN 23 H (9-20) mg/dL Creatinine 0.84 (0.66-1.25) mg/dL Est GFR (CKD-EPI)AfAm >90 (>60 ml/min/1.73 sqM) Est GFR (CKD-EPI)NonAf >90 (>60 ml/min/1.73 sqM) Glucose 106 H (74-99) mg/dL Calcium 9.9 (8.4-10.2) mg/dL Magnesium 2.2 (1.6-2.3) mg/dL Total Bilirubin 0.9 (0.2-1.3) mg/dL AST 24 (17-59) U/L ALT 28 (4-49) U/L Alkaline Phosphatase 52 (38-126) U/L Troponin I (0.000-0.034) ng/mL NT-Pro-B Natriuret Pep pg/mL Total Protein 8.2 (6.3-8.2) g/dL Albumin 5.1 H (3.5-5.0) g/dL 01/11/22 01/11/22 Range/Units 18:22 18:22 WBC (3.8-10.6) k/uL RBC (4.30-5.90) m/uL Hgb (13.0-17.5) gm/dL Hct (39.0-53.0) % MCV (80.0-100.0) fL MCH (25.0-35.0) pg MCHC (31.0-37.0) g/dL RDW (11.5-15.5) % Plt Count (150-450) k/uL MPV Neutrophils % % Lymphocytes % % Monocytes % % Eosinophils % % Basophils % % Neutrophils # (1.3-7.7) k/uL Lymphocytes # (1.0-4.8) k/uL Monocytes # (0-1.0) k/uL Eosinophils # (0-0.7) k/uL Basophils # (0-0.2) k/uL PT (9.0-12.0) sec INR (<1.2) APTT (22.0-30.0) sec Sodium (137-145) mmol/L Potassium (3.5-5.1) mmol/L Chloride (98-107) mmol/L Carbon Dioxide (22-30) mmol/L Anion Gap mmol/L BUN (9-20) mg/dL Creatinine (0.66-1.25) mg/dL Est GFR (CKD-EPI)AfAm (>60 ml/min/1.73 sqM) Est GFR (CKD-EPI)NonAf (>60 ml/min/1.73 sqM) Glucose (74-99) mg/dL Calcium (8.4-10.2) mg/dL Magnesium (1.6-2.3) mg/dL Total Bilirubin (0.2-1.3) mg/dL AST (17-59) U/L ALT (4-49) U/L Alkaline Phosphatase (38-126) U/L Troponin I <0.012 (0.000-0.034) ng/mL NT-Pro-B Natriuret Pep 54 pg/mL Total Protein (6.3-8.2) g/dL Albumin (3.5-5.0) g/dL Disposition Clinical Impression: Acute pericarditis Disposition: ADMITTED IP TO THIS HOSP Referrals: None,Stated [Primary Care Provider] - 1-2 days Time of Disposition: 20:24
[2022-01-11 18:38] LABS: Basophils % (A) 0 %; Eosinophils # (A) 0.1 k/uL (0-0.7); Eosinophils % (A) 1 %; HCT 48.1 % (39.0-53.0); HGB 16.9 gm/dL (13.0-17.5); Lymphocytes # (A) 1.4 k/uL (1.0-4.8); Lymphocytes % (A) 14 %; MCHC 35.1 g/dL (31.0-37.0); MCV 85.6 fL (80.0-100.0); Monocytes # (A) 0.6 k/uL (0-1.0); Monocytes % (A) 7 %; Neutrophils # (A) 7.3 k/uL (1.3-7.7); Neutrophils % (A) 77 %; Platelet Count 269 k/uL (150-450); RBC 5.62 m/uL (4.30-5.90); RDW 12.3 % (11.5-15.5); WBC 9.6 k/uL (3.8-10.6)
[2022-01-11 18:47] LABS: Partial Thromboplastin Time 25.6 sec (22.0-30.0); Prothrombin Time 10.9 sec (9.0-12.0)
[2022-01-11 18:55] LABS: ALT 28 U/L (4-49); AST 24 U/L (17-59); African American GFR (CKD) >90 (>60 ml/min/1.73 sqM); Albumin 5.1 g/dL (3.5-5.0); Alkaline Phosphatase 52 U/L (38-126); Anion Gap 9 mmol/L; Blood Urea Nitrogen 23 mg/dL (9-20); Calcium 9.9 mg/dL (8.4-10.2); Carbon Dioxide 27 mmol/L (22-30); Chloride 102 mmol/L (98-107); Glucose 106 mg/dL (74-99); Magnesium 2.2 mg/dL (1.6-2.3); Non-African American GFR(CKD) >90 (>60 ml/min/1.73 sqM); Sodium 138 mmol/L (137-145); Total Bilirubin 0.9 mg/dL (0.2-1.3); Total Protein 8.2 g/dL (6.3-8.2)
--- NOTE | 2022-01-11 19:05 | XR ---
EXAMINATION TYPE: XR chest 2V DATE OF EXAM: 01/11/2022 6:41 PM COMPARISON: Chest radiographs from 09/08/2021 TECHNIQUE: XR chest 2V Frontal and lateral views of the chest. CLINICAL INDICATION:Male, 31 years old with history of Chest Pain; FINDINGS: Lungs/Pleura: There is no evidence of pleural effusion, focal consolidation, or pneumothorax. Pulmonary vascularity: Unremarkable. Heart/mediastinum: Cardiomediastinal silhouette is unremarkable. Musculoskeletal: No acute osseous pathology. IMPRESSION: No acute cardiopulmonary disease/process.
[2022-01-11] MEDS ORDERED: NITROGLYCERIN SL TABS 0.4 MG TAB SUBLINGUAL PRN (20:24)
[2022-01-11] MEDS ORDERED: HYDROmorphone 0.5 MG/0.5 ML SYRINGE IVP PRN (20:25)
[2022-01-11] MEDS: COLCHICINE 0.6 MG EACH PO SCH (20:42)
[2022-01-11] MEDS ORDERED: ONDANSETRON ODT 4 MG TAB PO STA (21:05)
--- NOTE | 2022-01-12 01:01 | P.HPIM ---
History of Present Illness H&P Date: 01/11/22 Chief Complaint: Pleuritic chest pain 31-year-old male with history of WPW syndrome and recent episodes of acute pericarditis Patient was sent in by his cardiology after evaluation today due to uncontrolled pain from recurrent pericarditis. Patient initially had been diagnosed with pericarditis and WPW pack in August of this year he was considered to be idiopathic with no evidence of viral infection prior to that no history of autoimmune disease. Patient was managed with colchicine since August of this year and followed up with cardiology for EP studies eventually he did not require any ablation for that WPW syndrome EP studies were done about 2-3 weeks ago. 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 He has been tolerating his medications at home denies any GI bleeding Patient denies any fevers or chills denies any coughing denies any upper respiratory symptoms denies any diarrhea. Patient denies any knowledge of any recent viral infection denies any Covid infections he is vaccinated with 1 dose of J&J back in January [address]-T wave diffusely and AK depression. Troponin is n egative. Chest x-ray no acute process Review of Systems Pertinent positives as noted in HPI. All other systems were reviewed and are negative Past Medical History Past Medical History: GERD/Reflux Additional Past Medical History / Comment(s): Bronchitis, see Dr Howard H&P, pericarditis WPW History of Any Multi-Drug Resistant Organisms: None Reported Past Surgical History: No Surgical Hx Reported Additional Past Surgical History / Comment(s): mole removed, oral surgery Past Anesthesia/Blood Transfusion Reactions: Motion Sickness, Postoperative Nausea & Vomiting (PONV) Additional Past Anesthesia/Blood Transfusion Reaction / Comment(s): . Past Psychological History: No Psychological Hx Reported Smoking Status: Former smoker Past Alcohol Use History: Occasional Past Drug Use History: Marijuana - Past Family History Mother Family Medical History: Myocardial Infarction (MS) Additional Family Medical History / Comment(s): Mother has had 2-3 MIs and the first MS was either at age 41 or 42. Medications and Allergies Home Medications Medication Instructions Recorded Confirmed Type Ascorbic Acid [Vitamin C] 1,000 mg PO DAILY 09/08/21 01/11/22 History Omeprazole Magnesium [PriLOSEC OTC] 20 mg PO DAILY 09/08/21 01/11/22 History Colchicine [Colcrys] 0.6 mg PO BID 30 Days #60 tablet 09/10/21 01/11/22 Rx Cholecalciferol [Vitamin D3 (25 62.5 mcg PO DAILY 01/11/22 01/11/22 History Mcg = 1000 Iu)] Ibuprofen [Motrin] 600 mg PO Q8HR PRN 01/11/22 01/11/22 History Allergies Allergy/AdvReac Type Severity Reaction Status Date / Time codeine AdvReac Nausea & Verified 12/27/21 08:05 Vomiting Physical Exam Vitals: Vital Signs Temp Pulse Pulse Resp BP Pulse Ox 01/11/22 18:54 70 16 148/107 98 01/11/22 18:35 71 01/11/22 16:39 97.8 F 87 18 142/91 99 Intake and Output 01/11/22 01/11/22 01/11/22 06:59 14:59 22:59 Other: Weight 83.915 kg Constitutional: No acute distress, conversant, pleasant Eyes: Anicteric sclerae, moist conjunctiva, Pupils equal round reactive to light ENMT: NC/AT Oropharynx clear, no erythema, or exudates Neck: Supple, FROM, no masses, or JVD No carotid bruits No thyromegaly Lungs: Clear to auscultation Clear to percussion Normal respiratory effort, no accessory muscle use Cardiovascular: Heart regular in rate and rhythm, No murmurs, gallops, or rubs No peripheral edema Abdominal: Soft Nontender, no guarding, rebound or rigidity Abdomen moving with respiration Normoactive bowel sounds No hepatomegaly, No splenomegaly No palpable mass No abdominal wall hernia noted Skin: Normal temperature, tone, texture, turgor No induration No subcutaneous nodules No rash, lesions No ulcers Extremities: No digital cyanosis No clubbing Pedal pulses intact and symmetrical Radial pulses intact and symmetrical No calf tenderness Psychiatric: Alert and oriented to person, place and time Appropriate affect fair judgement Neuro Muscles Strength 5/5 in all 4 extremities Sensation to light touch grossly present throughout Cranial nerves II-XII grossly intact No focal sensory deficits Lymphatics: no palpable cervical or supraclavicular , or inguinal lymph nodes Results CBC & Chem 7: 01/11/22 18:22 01/11/22 18:22 Labs: Abnormal Lab Results - Last 24 Hours (Table) 01/11/22 Range/Units 18:22 BUN 23 H (9-20) mg/dL Glucose 106 H (74-99) mg/dL Albumin 5.1 H (3.5-5.0) g/dL Assessment and Plan Assessment: Recurrent pericarditis Continue with colchicine 0.6 mg twice a day Initiate indomethacin 50 mg 3 times a day Continue with Protonix daily Pain control with morphine Cardiology consult Cardiac monitoring Trend troponins Chest x-ray unremarkable EKG showed diffuse ST elevation and AK depression Full code DVT prophylaxis SCDs Anticipated length of stay less than 2 midnights
[2022-01-12] MEDS: INDOMETHACIN 25 MG CAP PO SCH ×4 (06:10→21:12)
[2022-01-12 09:31] LABS: Chol/HDL Ratio 4.99 Ratio; LDL Cholesterol,Calculated 148.1 mg/dL (0.0-131.0)
[2022-01-12] MEDS: PANTOPRAZOLE 40 MG TABLET PO SCH (10:14)
[2022-01-12] MEDS: ASPIRIN 325 MG TAB PO SCH (10:14)
[2022-01-12] MEDS: COLCHICINE 0.6 MG EACH PO SCH ×2 (10:16→21:12)
--- NOTE | 2022-01-12 17:42 | CONS ---
CONSULTATION This is a 31-year-old gentleman who sees Dr. Arndt in the outpatient setting. He underwent an EP study that was performed recently. He was found to have a slow conduction accessory pathway, for which ablation was not necessary. He came into the office to see Dr. Arndt yesterday complaining of pleuritic type of chest discomfort. He has changes on the EKG with a LA depression and prominent T-waves suggestive of pericarditis. He was advised to increase the dose of colchicine which he was already taking before for a similar condition. Patient has what seems to be a chronic pericarditis type picture; however, he tapered the dose of colchicine and now has recurrent symptoms. He came to the emergency room with these symptoms. He feels a lot better. His colchicine dose is 0.6 mg b.i.d. His pain is pleuritic in nature, worse on lying back, better on leaning forward. He is hemodynamically stable resting without any chest pain, shortness of breath or palpitations. PAST MEDICAL HISTORY: 1. Recent EP study, but no ablation was performed. 2. History of pericarditis, which seems to be subacute. 3. History of palpitations. MEDICATIONS: Medications at home include colchicine, but the dose was being tapered. Now he is back to 0.6 mg b.i.d. PHYSICAL EXAMINATION: Vitals are stable. No JVD. I do not hear a carotid bruit. Heart exam reveals S1, S2 heard normally. There is no evidence of any significant rub. Lungs reveal bilateral decent air entry. Abdomen is soft, nontender. Lower extremities reveal normal pulses. No edema. Central nervous system is normal. EKG revealed sinus mechanism, prominent T-waves and LA depression, and there is some ST elevation of a concavity noted on some leads. IMPRESSION: 1. Subacute pericarditis with exacerbation. 2. Recent EP study but no ablation. RECOMMENDATIONS: I am recommending that we continue colchicine, Indocin and Protonix. I will check echocardiogram and if these studies are stable, he can be discharged with the understanding he should continue colchicine 0.6 mg b.i.d. and see Dr. Arndt in one week after discharge, potentially tomorrow after we checked the echo and observe him for 24 hours. Thank you very much for the consult. MMODL / IJN: [id number] /
--- NOTE | 2022-01-12 17:57 | CA ---
Transthoracic Echo Report Name: Osorio Oliver Age: 31 Gender: M : 1990 Exam Date: 01/12/2022 10:59 Exam Location: [facility] Ht (in): 73 Wt (lb): 185 Ordering Physician: Sri Carnes Attending/Referring Phys: Extern Soniya Russo RDCS Procedure CPT: Indications: pericarditis evaluation Cardiac Hx: Technical Quality: Fair Contrast 1: Total Dose (mL): Contrast 2: Total Dose (mL): MEASUREMENTS (Male / Female) Normal Values 2D ECHO LV Diastolic Diameter PLAX 4.0 cm 4.2 - 5.9 / 3.9 - 5.3 cm LV Systolic Diameter PLAX 2.9 cm IVS Diastolic Thickness 1.5 cm 0.6 - 1.0 / 0.6 - 0.9 cm LVPW Diastolic Thickness 1.4 cm 0.6 - 1.0 / 0.6 - 0.9 cm LV Relative Wall Thickness 0.7 RV Internal Dim ED PLAX 2.9 cm LA Volume 40.7 cm??? 18 - 58 / 22 - 52 cm??? M-MODE Aortic Root Diameter MM 3.5 cm LA Systolic Diameter MM 3.0 cm LA Ao Ratio MM 0.8 AV Cusp Separation MM 2.3 cm DOPPLER AV Peak Velocity 117.8 cm/s AV Peak Gradient 5.5 mmHg MV Area PHT 4.4 cm??? Mitral E Point Velocity 62.9 cm/s Mitral A Point Velocity 39.3 cm/s Mitral E to A Ratio 1.6 MV Deceleration Time 172.0 ms MV E' Velocity 9.7 cm/s Mitral E to MV E' Ratio 6.5 TR Peak Velocity 176.9 cm/s TR Peak Gradient 12.5 mmHg Right Ventricular Systolic Press 17.5 mmHg FINDINGS Left Ventricle Mildly increased left ventricular wall thickness. Normal left ventricular systolic function with no obvious regional wall motion abnormalities. Left ventricular cavity size normal. Normal left ventricular diastolic filling pattern. Left ventricular ejection fraction is estimated at 55-60 %. Right Ventricle Normal right ventricular size and function. Right ventricular systolic pressure within normal limits. Right Atrium Normal right atrial size. Left Atrium Normal left atrial size. No evidence for an atrial septal defect. Mitral Valve Structurally normal mitral valve. No mitral stenosis. Mild mitral regurgitation. Aortic Valve Trileaflet aortic valve. No aortic valve stenosis or regurgitation. Tricuspid Valve Structurally normal tricuspid valve. Mild tricuspid regurgitation. Pulmonic Valve Structurally normal pulmonic valve. Trace pulmonic regurgitation. Pericardium No pericardial effusion. Aorta Normal size aortic root and proximal ascending aorta. CONCLUSIONS Borderline left ventricular wall thickness Normal left ventricular diastolic function Normal left ventricular ejection fraction 55-60% Mild mitral regurgitation Mild tricuspid regurgitation No pericardial effusion Previewed by: Dr. Alex Parra DO (Electronically Signed) Final Date: 12 January 2022 17:56
--- NOTE | 2022-01-12 18:45 | P.PN ---
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 Arndt for worsening symptoms of pericarditis. He had been initially diagnosed in August and had been tapering his colchicine, however when his symptoms recurred his colchicine was again increased. This did not seem to help and he was therefore sent to the hospital. In the ER he underwent an extensive evaluation. EKG was consistent with pericarditis. The remainder of his lab work was essentially unremarkable. He was started on oral dosing indomethacin. Cardiology was consulted. Already demonstrated borderline LVH, EF 55-60% and no pericardial effusion. Patient seen and examined at bedside. He denies any shortness of breath. His chest discomfort is greatly improved and he is overall feeling better. He continues to have some chest pain but now is at a 3-4 versus a 10 yesterday. General: non toxic, no distress, appears at stated age Derm: warm, dry Head: atraumatic, normocephalic, symmetric Eyes: EOMI, no lid lag, anicteric sclera Mouth: no lip lesion, mucus membranes moist Cardiovascular: S1S2 reg, no murmur/rub, positive posterior tibial pulse bilateral, Lungs: CTA bilateral, no rhonchi, no rales , no accessory muscle use Abdominal: soft, nontender to palpation, no guarding, no appreciable organomegaly Ext: no gross muscle atrophy, no edema, no contractures Neuro: CN II-XI grossly intact, no focal neuro deficits Psych: Alert, oriented, appropriate affect Assessment/plan: Subacute pericarditis -Indomethacin, colchicine -The left for pain control -Cardiology recommendations -Telemetry -Echocardiogram rather unremarkable GERD -PPI Likely home in a.m. if cleared by cardiology. Objective - Vital Signs Vital signs: Vital Signs Temp 98.1 F 01/12/22 16:15 Pulse 58 L 01/12/22 16:15 Resp 20 01/12/22 16:15 BP 134/89 01/12/22 16:15 Pulse Ox 99 01/12/22 16:15 FiO2 Intake & Output 01/11/22 01/12/22 01/12/22 18:59 06:59 18:59 Weight 83.915 kg 83.915 kg - Labs CBC & Chem 7: 01/11/22 18:22 01/11/22 18:22 Labs: Abnormal Lab Results - Last 24 Hours (Table) 01/11/22 01/12/22 Range/Units 18:22 04:27 BUN 23 H (9-20) mg/dL Glucose 106 H (74-99) mg/dL Albumin 5.1 H (3.5-5.0) g/dL Cholesterol 212.00 H (0.00-200.00) mg/dL LDL Cholesterol, Calc 148.1 H (0.0-131.0) mg/dL
[2022-01-13 03:28] VITALS: RESP 16
[2022-01-13] MEDS: PANTOPRAZOLE 40 MG TABLET PO SCH (06:37)
[2022-01-13 07:39] LABS: HCT 45.1 % (39.0-53.0); MCH 30.4 pg (25.0-35.0); MCHC 35.5 g/dL (31.0-37.0); MCV 85.7 fL (80.0-100.0); Mean Platelet Volume 6.9; Platelet Count 270 k/uL (150-450); RBC 5.27 m/uL (4.30-5.90); RDW 12.4 % (11.5-15.5); WBC 5.1 k/uL (3.8-10.6)
[2022-01-13] MEDS: ASPIRIN 325 MG TAB PO SCH (07:40)
[2022-01-13] MEDS: COLCHICINE 0.6 MG EACH PO SCH (07:41)
[2022-01-13] MEDS: INDOMETHACIN 25 MG CAP PO SCH (07:41)
[2022-01-13 07:53] LABS: African American GFR (CKD) >90 (>60 ml/min/1.73 sqM); Anion Gap 6 mmol/L; Blood Urea Nitrogen 22 mg/dL (9-20); Calcium 9.7 mg/dL (8.4-10.2); Carbon Dioxide 30 mmol/L (22-30); Chloride 102 mmol/L (98-107); Glucose 96 mg/dL (74-99); Non-African American GFR(CKD) >90 (>60 ml/min/1.73 sqM); Potassium 4.8 mmol/L (3.5-5.1); Sodium 138 mmol/L (137-145)
[2022-01-13 10:12] VITALS: TEMP 97.9
[2022-01-13 11:00] VITALS: BP 132/89; PULSE 54
--- NOTE | 2022-01-13 11:23 | P.PN ---
Subjective Progress Note Date: 01/13/22 HISTORY OF PRESENT ILLNESS: This is a 31-year-old male who was admitted to the hospital secondary to pericarditis. Patient is receiving colchicine and indomethacin. Patient reports significant improvement in his chest pain. Vital signs are stable. Patient is anxious to be discharged home today. PHYSICAL EXAM: VITAL SIGNS: Reviewed. GENERAL: Well-developed in no acute distress. NECK: Supple. No JVD or thyromegaly LUNGS: Respirations even and unlabored. Lungs essentially clear to auscultation bilaterally. HEART: Regular rate and rhythm. S1 and S2 heard. EXTREMITIES: Normal range of motion. No clubbing or cyanosis. Peripheral pulses intact. No lower extremity edema ASSESSMENT: Recurrent pericarditis PLAN: Continue current cardiac medications Patient is stable for discharge home today with outpatient follow-up with Dr. Morris Nurse practitioner note has been reviewed by physician. Signing provider agrees with the documented findings, assessment, and plan of care. Objective - Vital Signs Vital signs: Vital Signs Temp 97.9 F 01/13/22 07:37 Pulse 54 L 01/13/22 11:00 Resp 16 01/13/22 11:00 BP 132/89 01/13/22 11:00 Pulse Ox 97 01/13/22 11:00 FiO2 21 01/12/22 19:52 Intake & Output 01/12/22 01/13/22 01/13/22 18:59 06:59 18:59 Intake Total 240 Balance 240 Weight 83.915 kg 81.7 kg Intake: Oral 240 Other: # Voids 1 - Labs CBC & Chem 7: 01/13/22 07:13 01/13/22 07:13 Labs: Abnormal Lab Results - Last 24 Hours (Table) 01/13/22 Range/Units 07:13 BUN 22 H (9-20) mg/dL
--- NOTE | 2022-01-13 15:27 | P.DS ---
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 Arndt for worsening symptoms of pericarditis. He had been initially diagnosed in August and had been tapering his colchicine, however when his symptoms recurred his colchicine was again increased. This did not seem to help and he was therefore sent to the hospital. In the ER he underwent an extensive evaluation. EKG was consistent with pericarditis. The remainder of his lab work was essentially unremarkable. He was started on oral dosing indomethacin. Cardiology was consulted. Echo demonstrated borderline LVH, EF 55-60% and no pericardial effusion. He did not have any arrhythmias on telemetry. His pain improved and he was determined stable for discharge by cardiology. Follow-up: Dr. Arndt next week, indomethacin 50 mg 3 times daily 7 days and colchicine 0.6 mg twice daily. Patient seen and examined at bedside. Chest pain much improved. Did not sleep well last night. Breathing stable. Asking to be discharged. Vital signs reviewed and stable. General: non toxic, no distress, appears at stated age Derm: warm, dry Head: atraumatic, normocephalic, symmetric Eyes: EOMI, no lid lag, anicteric sclera Mouth: no lip lesion, mucus membranes moist Cardiovascular: S1S2 reg, no murmur, positive posterior tibial pulse bilateral, Lungs: CTA bilateral, no rhonchi, no rales , no accessory muscle use Abdominal: soft, nontender to palpation, no guarding, no appreciable organomegaly Ext: no gross muscle atrophy, no edema, no contractures Neuro: CN II-XI grossly intact, no focal neuro deficits Psych: Alert, oriented, appropriate affect A total of 22 minutes of time were spent preparing this complex discharge summary . Patient Condition at Discharge: Stable Plan - Discharge Summary Discharge Rx Participant: No New Discharge Prescriptions: New Indomethacin [Indocin] 50 mg PO TID #67 cap Continue Ascorbic Acid [Vitamin C] 1,000 mg PO DAILY Colchicine [Colcrys] 0.6 mg PO BID 30 Days #60 tablet Cholecalciferol [Vitamin D3 (25 Mcg = 1000 Iu)] 62.5 mcg PO DAILY Omeprazole Magnesium [PriLOSEC OTC] 20 mg PO DAILY Discontinued Ibuprofen [Motrin] 600 mg PO Q8HR PRN PRN Reason: Pain Discharge Medication List Ascorbic Acid [Vitamin C] 1,000 mg PO DAILY 09/08/21 [History] Omeprazole Magnesium [PriLOSEC OTC] 20 mg PO DAILY 09/08/21 [History] Colchicine [Colcrys] 0.6 mg PO BID 30 Days #60 tablet 09/10/21 [Rx] Cholecalciferol [Vitamin D3 (25 Mcg = 1000 Iu)] 62.5 mcg PO DAILY 01/11/22 [History] Indomethacin [Indocin] 50 mg PO TID #67 cap 01/13/22 [Rx] Follow up Appointment(s)/Referral(s): Bairon Arndt MD [STAFF PHYSICIAN] - 1 Week (Office closed, patient to call for appointment.) None,Stated [Primary Care Provider] - 1-2 days (Patient to choose primary care provider and schedule appointment.) Patient Instructions/Handouts: Acute Pericarditis (DC) Activity/Diet/Wound Care/Special Instructions: Activity: as tolerated Diet: regular Happy Anniversary! Discharge Disposition: HOME SELF-CARE
== END 2022-01-13 11:39 | disposition home or self-care (01) ==
LOC: EC 16:32 → 3SCARD 20:24
PROVIDERS: ADMIT Hospitalist; ATTEND Hospitalist
DX: I30.9 Acute pericarditis, unspecified (principal); I45.6 Pre-excitation syndrome; K21.9 Gastro-esophageal reflux disease without esophagitis; Z79.899 Other long term (current) drug therapy; Z88.5 Allergy status to narcotic agent; Z87.891 Personal history of nicotine dependence; Z82.49 Family history of ischemic heart disease and other diseases of the circulatory system
CPT/HCPCS: 96374; 99285; 36415; 94760; 93005 ×2; 93306; 83880; 80061; 80053; 80048; 83735; 84484 ×2; 85025; 85027; 85610; 85730; 71046; G0378 ×3; J1170

== ENCOUNTER 2024-09-12 21:25 | Emergency (ER) | payer BC ==
[2024-09-12 21:31] VITALS: TEMP 97.6
--- NOTE | 2024-09-12 21:50 | ED ---
Wound/Laceration HPI - General Chief Complaint: Wound/Laceration Stated Complaint: RT thumb laceration Time Seen by Provider: 09/12/24 21:32 Source: patient, RN notes reviewed Mode of arrival: ambulatory Limitations: no limitations - History of Present Illness Initial Comments: This is a 34-year-old male presenting to the emergency department for complaint of a right thumb laceration. He states an hour prior to arrival he was using a Saw when he cut his right thumb over the knuckle. Unaware when last tetanus vaccination was. Denies paresthesias and loss of range of motion of the finger. No other acute complaints at this time. - Related Data Home Medications Medication Instructions Recorded Confirmed Ascorbic Acid [Vitamin C] 1,000 mg PO DAILY 09/08/21 01/11/22 Omeprazole Magnesium [PriLOSEC OTC] 20 mg PO DAILY 09/08/21 01/11/22 Cholecalciferol [Vitamin D3 (25 62.5 mcg PO DAILY 01/11/22 01/11/22 Mcg = 1000 Iu)] Previous Rx's Medication Instructions Recorded Colchicine [Colcrys] 0.6 mg PO BID 30 Days #60 tablet 09/10/21 Indomethacin [Indocin] 50 mg PO TID #67 cap 01/13/22 Allergies Allergy/AdvReac Type Severity Reaction Status Date / Time codeine AdvReac Nausea & Verified 09/12/24 21:31 Vomiting Review of Systems ROS Statement: Those systems with pertinent positive or pertinent negative responses have been documented in the HPI. ROS Other: All systems not noted in ROS Statement are negative. Past Medical History Past Medical History: GERD/Reflux Additional Past Medical History / Comment(s): Bronchitis, pericarditis August 2021, WPW, EP study 2 weeks ago History of Any Multi-Drug Resistant Organisms: None Reported Past Surgical History: No Surgical Hx Reported Additional Past Surgical History / Comment(s): Mole removed, oral surgery, EP study 2 weeks ago Past Anesthesia/Blood Transfusion Reactions: Motion Sickness, Postoperative Nausea & Vomiting (PONV) Additional Past Anesthesia/Blood Transfusion Reaction / Comment(s): . Past Psychological History: No Psychological Hx Reported Smoking Status: Former smoker Past Alcohol Use History: Occasional Past Drug Use History: Marijuana - Past Family History Mother Family Medical History: Myocardial Infarction ([place]) Additional Family Medical History / Comment(s): Mother has had 2-3 MIs and the first [place] was either at age 41 or 42. General Exam Limitations: no limitations Neck exam: Present: normal inspection. Absent: tenderness, meningismus, lymphadenopathy Respiratory exam: Present: normal lung sounds bilaterally. Absent: respiratory distress, wheezes, rales, rhonchi, stridor Cardiovascular Exam: Present: regular rate, normal rhythm, normal heart sounds. Absent: systolic murmur, diastolic murmur, rubs, gallop, clicks GI/Abdominal exam: Present: soft, normal bowel sounds. Absent: distended, tenderness, guarding, rebound, rigid Right Hand Wrist exam: Present: laceration (4 cm over right first digit knuckle) Neuro motor exam: Present: wrist extension intact, thumb opposition intact, thumb IP flexion intact, thumb adduction intact Vascular: Present: normal capillary refill. Absent: vascular compromise Back exam: Present: normal inspection Course Vital Signs 09/12/24 21:28 Temperature 97.6 F Pulse Rate 66 Respiratory 18 Rate Blood Pressure 146/90 O2 Sat by Pulse 100 Oximetry Procedures - Laceration Laceration #1 Consent Obtained: verbal consent Indication: laceration Site: other (right thumb) Description: linear Anesthetic Used: lidocaine 1% Anesthesia Technique: nerve block Pre-repair: wound explored, deep structures intact Type of Sutures: nylon Size of Sutures: 4-0 Number of Sutures: 5 Technique: simple, interrupted Patient Tolerated Procedure: well, no complications Medical Decision Making - Medical Decision Making Was pt. sent in by a medical professional or institution (Dr. PA, PRINTING SIGN MACHINE OPERATOR, urgent care, hospital, or residential...) When possible be specific @ -No Did you speak to anyone other than the patient for history (EMS, parent, family, police, friend...)? What history was obtained from this source @ -No Did you review nursing and triage notes (agree or disagree)? Why? @ -I reviewed and agree with nursing and triage notes Were old charts reviewed (outside hosp., previous admission, EMS record, old EKG, old radiological studies, urgent care reports/EKG's, residential records)? Report findings @ -No old charts were reviewed Differential Diagnosis (chest pain, altered mental status, abdominal pain women, abdominal pain men, vaginal bleeding, weakness, fever, dyspnea, syncope, headache, dizziness, GI bleed, back pain, seizure, CVA, palpatations, mental health, musculoskeletal)? @ -Laceration EKG interpreted by me (3pts min.). @ -As above X-rays interpreted by me (1pt min.). @ -None done CT interpreted by me (1pt min.). @ -None done U/S interpreted by me (1pt. min.). @ -None done What testing was considered but not performed or refused? (CT, X-rays, U/S, labs)? Why? @ -None What meds were considered but not given or refused? Why? @ -None Did you discuss the management of the patient with other professionals (professionals i.e. DrKavon, PA, PRINTING SIGN MACHINE OPERATOR, lab, RT, psych nurse, social insurance analyst, supervisor car installations, teacher, attendance officer, casework manager)? Give summary @ -No Was smoking cessation discussed for >3mins.? @ -No Was critical care preformed (if so, how long)? @ -No Were there social determinants of health that impacted care today? How? (Homelessness, low income, unemployed, alcoholism, drug addiction, transportation, low edu. Level, literacy, decrease access to med. care, nursing home, rehab)? @ -No Was there de-escalation of care discussed even if they declined (Discuss DNR or withdrawal of care, Hospice)? DNR status @ -No What co-morbidities impacted this encounter? (DM, HTN, Smoking, COPD, CAD, Cancer, CVA, ARF, Chemo, Hep., AIDS, mental health diagnosis, sleep apnea, morbid obesity)? @ -None Was patient admitted / discharged? Hospital course, mention meds given and route, prescriptions, significant lab abnormalities, going to OR and other pertinent info. @ -Discharge. 34-year-old male presenting with laceration over the right knuckle. Laceration is approximately 4 cm in length. Patient has full range of motion and sensation of the thumb. He is provided with tetanus vaccination. Area was cleansed with sterile water and Betadine solution. 5 simple interrupted sutures were placed with 4-0 nylon. Have patient return to the emergency department or to primary care provider in 7 to 10 days for suture removal. Return parameters discussed. Case discussed with Dr. Daniels Undiagnosed new problem with uncertain prognosis? @ -No Drug Therapy requiring intensive monitoring for toxicity (Heparin, Nitro, Insulin, Cardizem)? @ -No Were any procedures done? @ -Wound irrigation, suture repair Diagnosis/symptom? @ -Laceration Acute, or Chronic, or Acute on Chronic? @ -Acute Uncomplicated (without systemic symptoms) or Complicated (systemic symptoms)? @ -Uncomplicated Side effects of treatment? @ -No Exacerbation, Progression, or Severe Exacerbation? @ -No Poses a threat to life or bodily function? How? (Chest pain, [place], [place], pneumonia, PE, COPD, DKA, ARF, appy, cholecystitis, CVA, Diverticulitis, Homicidal, Suicidal, threat to staff... and all critical care pts) @ -No Disposition Clinical Impression: Laceration Disposition: HOME SELF-CARE Condition: Good Instructions (If sedation given, give patient instructions): Care For Your Stitches (ED) Additional Instructions: Please return to the Emergency Department if symptoms worsen or any other concerns. Report back to the emergency department or to your primary care provider in 7 to 10 days for suture removal. Is patient prescribed a controlled substance at d/c from ED?: No Referrals: Keaton Reilly MD [Primary Care Provider] - 1-2 days Time of Disposition: 22:31
[2024-09-12] MEDS: ONDANSETRON ODT 4 MG TAB PO STA (21:55)
[2024-09-12] MEDS: LIDOCAINE 1% INJ 10MG/ML (20 ML MDV) SQ ONE (21:55)
[2024-09-12] MEDS: DIPH,PERTUS(ACELL)TETVAC-LF 0.5 ML VIAL IM ONE (21:56)
[2024-09-12 22:52] VITALS: BP 104/65; PULSE 52; RESP 16
== END 2024-09-12 22:47 | disposition home or self-care (01) ==
LOC: EC 21:25
DX: S61.011A Laceration without foreign body of right thumb without damage to nail, initial encounter (principal); Z87.891 Personal history of nicotine dependence; Z88.5 Allergy status to narcotic agent; Z23 Encounter for immunization; X58.XXXA Exposure to other specified factors, initial encounter
CPT/HCPCS: 90715; 99283; 90471; 12002; J2003